=== PATIENT | female | born 1980 | race Caucasian/White ===

== ENCOUNTER 2017-01-04 15:50 | Emergency (ER) | payer MEDICAID, OTHER ==
[~2017-01-04] VITALS: Ht 160 cm; Wt 47.3 kg
[2017-01-04] MEDS ORDERED: DIVA500T3 PO (15:59)
[2017-01-04] MEDS ORDERED: TRAM50TA2 PO (15:59)
[2017-01-04 16:23] LABS: CONTROL LINE UCG INT CTR LINE PRESENT
[2017-01-04 17:10] LABS: BASO % 0.2 % (0.0-1.0); EOS % 0.6 % (0.0-3.0); LARGE UNSTAINED CELL # 0.1 K/mm3 (0.0-0.4); LARGE UNSTAINED CELL % 1.2 % (0.0-4.0); LYMPH # 1.9 K/mm3 (1.5-4.5); LYMPH % 23.4 % (24.0-44.0); MEAN CORPUSCULAR HEMOGLOBIN 29.9 pg (27.0-33.0); MEAN CORPUSCULAR HGB CONC 33.5 g/dl (32.0-36.5); MEAN CORPUSCULAR VOLUME 89.2 fl (80.0-96.0); MONO # 0.3 K/mm3 (0.0-0.8); MONO % 3.4 % (0.0-5.0); NEUTROPHILS # 5.7 K/mm3 (1.8-7.7); NEUTROPHILS % 71.2 % (36.0-66.0); PLATELET COUNT, AUTOMATED 179 k/mm3 (150-450); RED CELL DISTRIBUTION WIDTH 12.3 % (11.5-14.5)
[2017-01-04] MEDS ORDERED: NS 1,000 ML IV ONE (17:30)
--- NOTE | 2017-01-04 17:33 | REP ---
Clinical: Left flank pain with history of nephrolithiasis. Findings: Lung bases are clear. Visualized heart and pericardium normal. Liver, spleen, pancreas, gallbladder, bilateral adrenal glands and kidneys are normal for noncontrast evaluation. Specifically, no perinephric stranding, hydroureteronephrosis, intrarenal or obstructing ureteral calculi are identified. The enteric system is without obstruction or acute inflammatory process. Pelvis demonstrates normal bladder and age-appropriate uterus/adnexa. Calcifications in the pelvis most compatible with phleboliths. Minuscule amount of free fluid in the posterior cul-de-sac is likely physiologic and related to menstrual cycle. No free air. No significant ascites. No obvious adenopathy. Abdominal aorta without aneurysm. Surrounding musculoskeletal structures are intact without focal osseous abnormality. Impression: Essentially normal noncontrast CT of the abdomen and pelvis. Specifically, normal appearance to the kidneys and urinary tract system. Signed by Kenneth Del Toro MD 01/04/2017 05:24 P
[2017-01-04 17:34] LABS: ALBUMIN 4.3 GM/DL (3.2-5.2); ALBUMIN/GLOBULIN RATIO 1.19 (1.00-1.93); ALKALINE PHOSPHATASE 65 U/L (45-117); ALT/SGPT 84 U/L (12-78); ANION GAP 7 MEQ/L (8-16); AST/SGOT 34 U/L (15-37); BILIRUBIN,TOTAL 0.4 MG/DL (0.2-1.0); BLOOD UREA NITROGEN 12 MG/DL (7-18); CALCIUM LEVEL 9.5 MG/DL (8.5-10.1); CARBON DIOXIDE LEVEL 28 MEQ/L (21-32); CHLORIDE LEVEL 104 MEQ/L (98-107); CREATININE FOR GFR 0.74 MG/DL (0.55-1.02); GLOMERULAR FILTRATION RATE > 60.0 (>60); GLUCOSE, FASTING 81 MG/DL (70-105); POTASSIUM SERUM 3.6 MEQ/L (3.5-5.1); SODIUM LEVEL 139 MEQ/L (136-145); TOTAL PROTEIN 7.9 GM/DL (6.4-8.2)
[2017-01-04] MEDS ORDERED: ONDANSETRON 4MG/2ML VIAL (J2405) IV ONE (17:45)
[2017-01-04] MEDS ORDERED: ZOFR4TAB3 PO (18:02)
[2017-01-04] MEDS ORDERED: CIPR-249 PO (18:02)
[2017-01-04] MEDS ORDERED: PHEN-501 PO (18:02)
[2017-01-04] MEDS ORDERED: DIFL150T PO (18:06)
[2017-01-04 18:18] VITALS: BP 96/65
== END 2017-01-04 18:20 | disposition home or self-care (01) ==
LOC: M ED 15:50
DX: K52.9 Noninfective gastroenteritis and colitis, unspecified (principal); N10 Acute pyelonephritis; Z87.440 Personal history of urinary (tract) infections; Z79.899 Other long term (current) drug therapy; Z88.6 Allergy status to analgesic agent
CPT/HCPCS: 74176; 80053; 81001; 83605; 84703; 85025; 87040; 87086; 96374; 99284; J2405

== ENCOUNTER → 2017-10-23 | Outpatient (REF) | payer OTHER ==
[2017-10-23 18:03] LABS: ALBUMIN 4.1 GM/DL (3.2-5.2); ALBUMIN/GLOBULIN RATIO 1.28 (1.00-1.93); ALKALINE PHOSPHATASE 63 U/L (45-117); ALT/SGPT 45 U/L (12-78); ANION GAP 8 MEQ/L (8-16); AST/SGOT 27 U/L (7-37); BILIRUBIN,TOTAL 0.4 MG/DL (0.2-1.0); BLOOD UREA NITROGEN 12 MG/DL (7-18); CALCIUM LEVEL 9.2 MG/DL (8.5-10.1); CARBON DIOXIDE LEVEL 30 MEQ/L (21-32); CHLORIDE LEVEL 105 MEQ/L (98-107); CREATININE FOR GFR 0.67 MG/DL (0.55-1.30); GLOMERULAR FILTRATION RATE > 60.0 (>60); GLUCOSE, FASTING 80 MG/DL (70-100); POTASSIUM SERUM 3.6 MEQ/L (3.5-5.1); SODIUM LEVEL 143 MEQ/L (136-145); TOTAL PROTEIN 7.3 GM/DL (6.4-8.2)
== END ==
LOC: M LAB REF 17:12
DX: Z79.899 Other long term (current) drug therapy (principal)

== ENCOUNTER → 2017-12-05 | Outpatient (REF) | payer OTHER | LOC: M SFHCPLAZ 15:47 | DX: R10.30 Lower abdominal pain, unspecified (principal) ==

== ENCOUNTER → 2019-07-28 | Outpatient (CLI) | payer OTHER ==
[~2019-07-28] MED LIST: CIPR-249 PO; DIFL150T PO; DIVA500T94 PO; PHEN-501 PO; TRAM50TA2 PO; ZOFR4TAB14 PO
--- NOTE | 2019-07-28 09:35 | REP ---
Clinical: Right upper quadrant pain with nausea. Technique: Real time hough scale ultrasound examination using curved array transducer. Findings: Liver and pancreas are normal in contour, size, echogenicity without focal hepatic or pancreatic lesion identified. Gallbladder is normal and without gallstones, wall thickening, or pericholecystic fluid. No biliary ductal dilatation is appreciated and the common bile duct measures 4.3 mm diameter. The right kidney is normal in reniform shape without hydronephrosis and measures 10.9 x 4.8 x 3.4 cm and includes 7 mm lower pole cyst. No ascites. Impression: Normal right upper quadrant ultrasound. Electronically Signed by Kenneth Del Toro MD 07/28/2019 09:26 A
== END ==
LOC: M RAD 08:54
PROVIDERS: ATTEND Internal Medicine
DX: R11.0 Nausea (principal)

== ENCOUNTER → 2019-08-18 | Outpatient (REF) | payer OTHER | LOC: M SFHCPLAZ 15:36 | PROVIDERS: ATTEND Physician Assistant Medical | DX: Z11.59 Encounter for screening for other viral diseases (principal); Z20.828 Contact with and (suspected) exposure to other viral communicable diseases | CPT/HCPCS: 87502; U0002 ==

== ENCOUNTER → 2019-08-27 | Outpatient (REF) | payer OTHER | LOC: M SFHCPLAZ 16:43 | PROVIDERS: ATTEND Student in an Organized Health Care Education/Training Program | DX: R06.00 Dyspnea, unspecified (principal) ==

== ENCOUNTER 2021-12-06 23:49 | Emergency (ER) | payer OTHER ==
[~2021-12-06] VITALS: Ht 160 cm; Wt 52.3 kg
[2021-12-07] MEDS ORDERED: MELO15TA28 PO (00:15)
[2021-12-07] MEDS ORDERED: GABA-282 PO (00:15)
[2021-12-07] MEDS ORDERED: PREG75CA2 PO (00:15)
[2021-12-07] MEDS ORDERED: METH-1164 PO (00:15)
[2021-12-07 00:25] LABS: BASO % 0.3 % (0.0-1.0); EOS # 0.2 10^3/uL (0.0-0.5); EOS % 2.1 % (0.0-3.0); HEMATOCRIT 31.2 % (36.0-47.0); HEMOGLOBIN 9.4 g/dl (12.0-15.5); LYMPH # 2.5 10^3/uL (1.5-5.0); LYMPH % 34.1 % (24.0-44.0); MEAN CORPUSCULAR HEMOGLOBIN 24.9 pg (27.0-33.0); MEAN CORPUSCULAR HGB CONC 30.1 g/dl (32.0-36.5); MEAN CORPUSCULAR VOLUME 82.8 fl (80.0-96.0); MONO # 0.4 10^3/uL (0.0-0.8); MONO % 5.6 % (2.0-8.0); NEUTROPHILS # 4.1 10^3/uL (1.5-8.5); NEUTROPHILS % 57.5 % (36.0-66.0); PLATELET COUNT, AUTOMATED 238 10^3/uL (150-450); RED BLOOD COUNT 3.77 10^6/uL (4.00-5.40); WHITE BLOOD COUNT 7.2 10^3/uL (4.0-10.0)
[2021-12-07 00:38] LABS: HCG, SERUM QUALITATIVE NEGATIVE (NEGATIVE)
[2021-12-07 00:54] LABS: CK-MB VALUE MASS < 1.0 NG/ML (<3.6); CPK CREATINE PHOSPHOKINASE 87 U/L (26-192); MB/CK RELATIVE INDEX 1.15 (< OR =4)
[2021-12-07 01:01] LABS: ALBUMIN 3.8 GM/DL (3.2-5.2); ALT/SGPT 18 U/L (12-78); BILIRUBIN,DIRECT < 0.1 MG/DL (0.0-0.2); BILIRUBIN,TOTAL 0.2 MG/DL (0.2-1.0); BLOOD UREA NITROGEN 7 MG/DL (7-18); CARBON DIOXIDE LEVEL 26 MEQ/L (21-32); CHLORIDE LEVEL 107 MEQ/L (98-107); GLOMERULAR FILTRATION RATE > 60.0 (>58); GLUCOSE, FASTING 83 MG/DL (70-100); LIPASE 149 U/L (73-393); POTASSIUM SERUM 3.9 MEQ/L (3.5-5.1); SODIUM LEVEL 137 MEQ/L (136-145); TOTAL PROTEIN 7.3 GM/DL (6.4-8.2)
[2021-12-07 05:01] LABS: CK-MB VALUE MASS < 1.0 NG/ML (<3.6); CPK CREATINE PHOSPHOKINASE 76 U/L (26-192); MB/CK RELATIVE INDEX 1.32 (< OR =4)
[2021-12-07 07:30] VITALS: BP 97/63
[2021-12-07] MEDS ORDERED: GI COCKTAIL 50ML BTL(HYOSCYAMINE/MAALOX/LIDOCAINE VISCOUS)(1:3:1) PO ONE (07:35)
== END 2021-12-07 07:58 | disposition home or self-care (01) ==
LOC: M ED 23:49
DX: R10.13 Epigastric pain (principal); D64.9 Anemia, unspecified; Z88.6 Allergy status to analgesic agent; Z79.899 Other long term (current) drug therapy; Z79.1 Long term (current) use of non-steroidal anti-inflammatories (NSAID)

== ENCOUNTER 2022-06-29 20:13 | Emergency (ER) | payer OTHER ==
[~2022-06-29] VITALS: Ht 160 cm; Wt 53.1 kg
[~2022-06-29 20:13] MED LIST changes: +GABA-282 PO; +MELO15TA28 PO; +METH-1164 PO; +PREG75CA2 PO
[2022-06-29 21:16] LABS: BASO % 0.4 % (0.0-1.0); HEMATOCRIT 31.3 % (36.0-47.0); HEMOGLOBIN 9.2 g/dl (12.0-15.5); LYMPH # 2.2 10^3/uL (1.5-5.0); LYMPH % 26.8 % (24.0-44.0); MEAN CORPUSCULAR HEMOGLOBIN 23.2 pg (27.0-33.0); MEAN CORPUSCULAR HGB CONC 29.4 g/dl (32.0-36.5); MONO # 0.5 10^3/uL (0.0-0.8); MONO % 6.2 % (2.0-8.0); NEUTROPHILS # 5.6 10^3/uL (1.5-8.5); NEUTROPHILS % 66.4 % (36.0-66.0); PLATELET COUNT, AUTOMATED 282 10^3/uL (150-450); RED BLOOD COUNT 3.96 10^6/uL (4.00-5.40); WHITE BLOOD COUNT 8.4 10^3/uL (4.0-10.0)
[2022-06-29] MEDS ORDERED: NS 1,000 ML IV ONE (22:50)
[2022-06-29 23:29] LABS: THYROID STIMULATING HORMONE 2.843 uIU/ML (0.55-4.78)
[2022-06-29 23:52] LABS: AMPHETAMINES LEVEL URINE NEGATIVE (NEGATIVE); BARBITURATES URINE NEGATIVE (NEGATIVE); BENZODIAZEPINES URINE NEGATIVE (NEGATIVE); CANNABINOIDS URINE NEGATIVE (NEGATIVE); COCAINE METABOLITE URINE NEGATIVE (NEGATIVE); METHADONE URINE NEGATIVE (NEGATIVE); OPIATES URINE NEGATIVE (NEGATIVE); PHENCYCLIDINE URINE NEGATIVE (NEGATIVE)
[2022-06-29] MEDS ORDERED: ISOVUE-370 76% 100ML VIAL As Ordered ONE (23:54)
[2022-06-29] MEDS ORDERED: ACETAMINOPHEN 500 MG TAB PO ONE (23:55)
[2022-06-29] MEDS ORDERED: METOCLOPRAMIDE INJ 10MG/2ML VIAL IV ONE (23:55)
[2022-06-29] MEDS ORDERED: diphenhydrAMINE 50MG/ML VIAL IV ONE (23:55)
[2022-06-29 23:58] LABS: RSV AMPLIFICATION NEGATIVE (NEGATIVE)
[2022-06-30 00:05] LABS: CK-MB VALUE MASS < 1.0 NG/ML (<3.6); CPK CREATINE PHOSPHOKINASE 59 U/L (34-145); MB/CK RELATIVE INDEX 1.69 (< OR =4)
[2022-06-30] MEDS ORDERED: POTASSIUM CHLORIDE 10MEQ SR TABLET PO ONE (02:10)
[2022-06-30] MEDS ORDERED: NS 1,000 ML IV ONE (02:10)
[2022-06-30 02:27] LABS: CK-MB VALUE MASS < 1.0 NG/ML (<3.6)
[2022-06-30 02:29] LABS: CPK CREATINE PHOSPHOKINASE 55 U/L (34-145); MB/CK RELATIVE INDEX 1.81 (< OR =4)
[2022-06-30 03:45] VITALS: BP 105/61
== END 2022-06-30 06:03 | disposition home or self-care (01) ==
LOC: M ED 20:13
DX: H43.399 Other vitreous opacities, unspecified eye (principal); R42 Dizziness and giddiness; R51.9 Headache, unspecified; Z87.442 Personal history of urinary calculi; Z88.6 Allergy status to analgesic agent; Z79.891 Long term (current) use of opiate analgesic; Z79.899 Other long term (current) drug therapy
CPT/HCPCS: 70450; 70496; 70498; 72125; 72131; 80047; 80307; 81001; 82550; 82553; 84439; 84443; 85025; 87631; 93005; 96374; 96375; 99285; J1200; J2765

== ENCOUNTER 2024-01-18 14:36 | Emergency (ER) | payer OTHER ==
[~2024-01-18] VITALS: Ht 160 cm; Wt 55.8 kg
[~2024-01-18 14:36] MED LIST changes: -PREG75CA2 PO; +PREG75CA3 PO
[2024-01-18] MEDS ORDERED: ALEV220T22 PO (14:44)
[2024-01-18] MEDS: predniSONE 20 MG TAB PO ONE (18:14)
[2024-01-18] MEDS: LIDOCAINE 5% (LIDODERM) PATCH TD ONE (18:14)
[2024-01-18] MEDS: KETOROLAC 30 MG/ML 1ML VIAL IM ONE (18:18)
[2024-01-18 19:46] VITALS: BP 119/61; TEMP 97.5; O2SAT 99
== END 2024-01-18 20:01 | disposition home or self-care (01) ==
LOC: M ED 14:36
DX: M46.1 Sacroiliitis, not elsewhere classified (principal); M54.50 Low back pain, unspecified; R51.9 Headache, unspecified; J45.909 Unspecified asthma, uncomplicated; Z88.6 Allergy status to analgesic agent; Z79.899 Other long term (current) drug therapy; Z79.1 Long term (current) use of non-steroidal anti-inflammatories (NSAID)
CPT/HCPCS: 72110; 96372; 99283; J1885; J7512